=== PATIENT | male | born 1945 | race African-American/Black ===

== ENCOUNTER 2023-06-01 23:30 | Emergency (ER) | payer MEDICARE ==
[~2023-06-01] VITALS: Ht 165.1 cm; Wt 70.0 kg
[~2023-06-01 23:30] MED LIST: CARB-104 PO; DIVA-73 PO; FINA1TAB18 PO; LEVE1000 MT; TAMS-11 PO
[2023-06-01 23:38] VITALS: O2SAT 98
[2023-06-01] MEDS ORDERED: LEVETIRACETAM 500MG PREMIX 100 ML IV ONE (23:45)
[2023-06-02 00:53] LABS: BASOPHILS % 0.6 % (0.0-2.0); EOSINOPHILS % 0.9 % (0.0-5.0); HEMATOCRIT. 40.9 % (42.0-52.0); HEMOGLOBIN. 13.6 g/dL (14.0-18.0); LYMPHOCYTES % 38.9 % (20.0-50.0); MEAN CORPUSCULAR HEMOGLOBIN 28.9 pg (28.0-32.0); MEAN CORPUSCULAR HGB CONC 33.2 g/dL (31.0-37.0); MEAN CORPUSCULAR VOLUME 87.2 fL (80.0-94.0); MEAN PLATELET VOLUME 8.4 fl (7.4-10.4); MONOCYTES % 8.7 % (2.0-8.0); NEUTROPHILS % 50.9 % (40.0-76.0); PLATELET 134 x1000/uL (130-400); RED BLOOD CELL COUNT 4.69 mill/uL (4.7-6.1); RED CELL DISTRIBUTION WIDTH 13.4 % (11.6-14.6); WHITE BLOOD COUNT 3.6 x1000/uL (4.5-11.0)
[2023-06-02 01:05] LABS: ALANINE AMINOTRANSFERASE 10 IU/L (10-49); ALBUMIN 4.4 g/dL (3.2-4.8); ASPARTATE AMINOTRANSFERASE 36 IU/L (<34); BILIRUBIN TOTAL 0.4 mg/dL (0.1-1.0); CALCIUM 8.5 mg/dL (8.7-10.4); CARBON DIOXIDE 27 mEq/L (21-32); CHLORIDE 96 mEq/L (98-107); CREATININE 0.8 mg/dL (0.6-1.3); GLUCOSE 108 mg/dL (70-105); POTASSIUM 5.2 mEq/L (3.5-5.1); SODIUM 131 mEq/L (136-145); UREA NITROGEN BLOOD 15 mg/dL (9-23); VALPROIC ACID 57.3 ug/mL (50-100)
[2023-06-02 01:09] LABS: ETHANOL BLOOD < 10 mg/dL (<10)
[2023-06-02] MEDS ORDERED: ONDANSETRON HCL 4MG/2ML INJ IV ONE (02:45)
[2023-06-02 04:00] VITALS: BP 145/93; PULSE 91; RESP 19
== END 2023-06-02 05:00 | disposition home or self-care (01) ==
LOC: ER 23:30
DX: R56.9 Unspecified convulsions (principal); Z79.899 Other long term (current) drug therapy
CPT/HCPCS: 36415; 99284; 80053; 80320; 82962; 80165; 85025; 96365; 96375; J1953; J2405; G0480

== ENCOUNTER 2024-01-04 14:21 | Emergency (ER) | payer MEDICARE, OTHER ==
[~2024-01-04] VITALS: Ht 172.7 cm; Wt 73.0 kg
[~2024-01-04 14:21] MED LIST changes: -FINA1TAB18 PO; +FINA5TAB11 PO; +MELO-104 PO
[2024-01-04 14:25] VITALS: TEMP 98.8; O2SAT 97
[2024-01-04 14:42] LABS: BASOPHILS % 0.7 % (0.0-2.0); EOSINOPHILS % 3.1 % (0.0-5.0); HEMATOCRIT. 37.3 % (42.0-52.0); HEMOGLOBIN. 12.2 g/dL (14.0-18.0); LYMPHOCYTES % 45.3 % (20.0-50.0); MEAN CORPUSCULAR HEMOGLOBIN 29.7 pg (28.0-32.0); MEAN CORPUSCULAR HGB CONC 32.8 g/dL (31.0-37.0); MEAN CORPUSCULAR VOLUME 90.8 fL (80.0-94.0); MEAN PLATELET VOLUME 7.1 fl (7.4-10.4); MONOCYTES % 6.4 % (2.0-8.0); NEUTROPHILS % 44.5 % (40.0-76.0); PLATELET 87 x1000/uL (130-400); WHITE BLOOD COUNT 3.1 x1000/uL (4.5-11.0)
[2024-01-04] MEDS: LEVETIRACETAM 500MG PREMIX 100 ML IV ONE (14:52)
[2024-01-04 14:53] LABS: CHLORIDE 103 mEq/L (98-107); POTASSIUM 3.8 mEq/L (3.5-5.1); SODIUM 140 mEq/L (136-145)
[2024-01-04 14:54] LABS: CALCIUM 8.7 mg/dL (8.7-10.4); CARBON DIOXIDE 32 mEq/L (21-32)
[2024-01-04 14:59] LABS: CREATININE 0.8 mg/dL (0.6-1.3); GLUCOSE 133 mg/dL (70-105); UREA NITROGEN BLOOD 13 mg/dL (9-23)
[2024-01-04] MEDS ORDERED: KEPP500 MT (15:29)
[2024-01-04] MEDS ORDERED: LEVE1000 MT (15:30)
[2024-01-04 17:00] VITALS: BP 188/83; PULSE 79; RESP 16
== END 2024-01-04 17:45 | disposition home or self-care (01) ==
LOC: ER 14:21
DX: G40.909 Epilepsy, unspecified, not intractable, without status epilepticus (principal); R07.9 Chest pain, unspecified
CPT/HCPCS: 99284; 96365; 80048; 85025; 36415; 93005; J1953

== ENCOUNTER 2024-10-02 23:36 | Emergency (ER) | payer MEDICARE, OTHER ==
[~2024-10-02] VITALS: Ht 172.7 cm; Wt 68.0 kg
[~2024-10-02 23:36] MED LIST changes: -CARB-104 PO; +KEPP500 MT; -TAMS-11 PO; +TAMS-54 PO; +[UNRECOGNIZED DRUG - CODE] PO
[2024-10-02 23:43] VITALS: O2SAT 100
[2024-10-03] MEDS: LEVETIRACETAM 1000MG PREMIX 100 ML IV ONE (00:51)
[2024-10-03 01:08] LABS: CHLORIDE 103 mEq/L (98-107); POTASSIUM 4.8 mEq/L (3.5-5.1); SODIUM 138 mEq/L (136-145)
[2024-10-03 01:09] LABS: CARBON DIOXIDE 29 mEq/L (21-32)
[2024-10-03 01:10] LABS: CALCIUM 9.1 mg/dL (8.7-10.4); HEMOGLOBIN. 12.2 g/dL (14.0-18.0); MEAN CORPUSCULAR HEMOGLOBIN 30.1 pg (28.0-32.0); MEAN CORPUSCULAR HGB CONC 32.9 g/dL (31.0-37.0); MEAN CORPUSCULAR VOLUME 91.3 fL (80.0-94.0); MEAN PLATELET VOLUME 7.9 fl (7.4-10.4); PLATELET 78 x1000/uL (130-400); RED BLOOD CELL COUNT 4.05 mill/uL (4.7-6.1); RED CELL DISTRIBUTION WIDTH 13.1 % (11.6-14.6); WHITE BLOOD COUNT 5.1 x1000/uL (4.5-11.0)
[2024-10-03 01:14] LABS: CREATININE 0.8 mg/dL (0.6-1.3); GLUCOSE 118 mg/dL (70-105); UREA NITROGEN BLOOD 17 mg/dL (9-23)
[2024-10-03 01:24] LABS: DIFFERENTIAL COMMENT 1
[2024-10-03 02:03] LABS: PLATELET ESTIMATE SLIGHTLY DECREASED
[2024-10-03 06:56] VITALS: BP 180/74; PULSE 61; RESP 13; TEMP 36.8; O2SAT 100
== END 2024-10-03 07:15 | disposition home or self-care (01) ==
LOC: ER 23:48
DX: R56.9 Unspecified convulsions (principal); F03.90 Unspecified dementia, unspecified severity, without behavioral disturbance, psychotic disturbance, mood disturbance, and anxiety; Z79.899 Other long term (current) drug therapy
CPT/HCPCS: 99284; 36415; 96365; 80048; 85025; J1953; 96372

== ENCOUNTER 2024-11-23 17:36 | Inpatient (IN) | payer MEDICARE, OTHER ==
[~2024-11-23] VITALS: Ht 172.7 cm; Wt 64.4 kg
[2024-11-23] MEDS: ACETAMINOPHEN 325MG TABLET PO ONE (18:00)
[2024-11-23 21:06] LABS: BASOPHILS % 0.2 % (0.0-2.0); EOSINOPHILS % 0.1 % (0.0-5.0); HEMATOCRIT. 37.3 % (42.0-52.0); HEMOGLOBIN. 12.5 g/dL (14.0-18.0); LYMPHOCYTES % 9.4 % (20.0-50.0); MEAN CORPUSCULAR HEMOGLOBIN 29.8 pg (28.0-32.0); MEAN CORPUSCULAR HGB CONC 33.4 g/dL (31.0-37.0); MEAN PLATELET VOLUME 7.6 fl (7.4-10.4); MONOCYTES % 8.5 % (2.0-8.0); NEUTROPHILS % 81.8 % (40.0-76.0); PLATELET 84 x1000/uL (130-400); RED BLOOD CELL COUNT 4.19 mill/uL (4.7-6.1); WHITE BLOOD COUNT 3.7 x1000/uL (4.5-11.0)
[2024-11-23] MEDS: HYDRALAZINE 20MG/ML VIAL IV ONE (21:08)
[2024-11-23] MEDS: MORPHINE SULFATE 2 MG/ML INJ (NOT FOR IM USE) IV SCH (21:09)
[2024-11-23 21:13] LABS: CHLORIDE 97 mEq/L (98-107); POTASSIUM 4.8 mEq/L (3.5-5.1); SODIUM 134 mEq/L (136-145)
[2024-11-23 21:14] LABS: CARBON DIOXIDE 30 mEq/L (21-32)
[2024-11-23] MEDS ORDERED: LEVETIRACETAM 1,000MG in NACL 100ML PREMIX IV SCH (21:15)
[2024-11-23] MEDS: LORAZEPAM 2MG/ML UD SYRINGE ONE (21:17)
[2024-11-23] MEDS: LORAZEPAM 2MG/ML INJ IV ONE (21:17)
[2024-11-23 21:19] LABS: CREATININE 0.9 mg/dL (0.6-1.3); GLUCOSE 129 mg/dL (70-105); UREA NITROGEN BLOOD 14 mg/dL (9-23)
[2024-11-23 21:20] LABS: TROPONIN I HIGH SENSITIVITY 38 ng/L (3.0-53)
[2024-11-23 21:22] LABS: D-DIMER 14.84 mg/L FEU (<0.50); PROTHROMBIN TIME 11.2 sec (9.6-11.0)
[2024-11-23] MEDS: LEVETIRACETAM 1000MG PREMIX 100 ML IV NR (21:25)
[2024-11-23] MEDS: SODIUM CHLORIDE 0.9% 1,000 ML IV ONE (21:38)
[2024-11-23] MEDS: MORPHINE SULFATE 2 MG/ML INJ (NOT FOR IM USE) IV ONE (21:39)
[2024-11-23] MEDS: ACETAMINOPHEN 325MG TABLET PO SCH (22:45)
[2024-11-24] VITALS (21 sets, daily range): BP systolic 117–180; BP diastolic 53–117; PULSE 63–105; RESP 11–19; TEMP 36.78072–37.7; O2SAT 97–100
[2024-11-24] MEDS ORDERED: IPRATROPIUM/ALBUTEROL 0.5-3(2.5)MG/3ML NEB HHN PRN (00:15)
[2024-11-24] MEDS ORDERED: ACETAMINOPHEN 325MG TABLET PO PRN (00:15)
[2024-11-24] MEDS ORDERED: ONDANSETRON HCL 4MG/2ML INJ IV PRN (00:15)
[2024-11-24] MEDS ORDERED: LEVETIRACETAM 500MG PREMIX 100ML IV NR (00:30)
[2024-11-24] MEDS ORDERED: LEVETIRACETAM 500MG in NACL 100ML PREMIX IV ONE (00:30)
[2024-11-24] MEDS ORDERED: LORAZEPAM 2MG/ML UD SYRINGE IV PRN ×2 (00:30→04:45)
[2024-11-24] MEDS ORDERED: IPRATROPIUM/ALBUTEROL 0.5-3(2.5)MG/3ML NEB HHN NR (00:30)
[2024-11-24] MEDS ORDERED: DEXTROSE 50% WATER 50ML SYRINGE IV PRN (01:00)
[2024-11-24] MEDS: VALPROATE SODIUM 1,000 MG in SODIUM CHLORIDE 0.9% 100 ML IV NR (01:13)
[2024-11-24] MEDS: LEVETIRACETAM 1000MG PREMIX 100 ML IV NR (01:20)
[2024-11-24] MEDS: SODIUM CHLORIDE 0.9% 1,000 ML IV SCH (02:00)
[2024-11-24 03:03] LABS: CHLORIDE 101 mEq/L (98-107); POTASSIUM 4.8 mEq/L (3.5-5.1); SODIUM 134 mEq/L (136-145)
[2024-11-24 03:04] LABS: CARBON DIOXIDE 30 mEq/L (21-32)
[2024-11-24 03:05] LABS: CALCIUM 8.7 mg/dL (8.7-10.4)
[2024-11-24 03:09] LABS: CREATININE 0.9 mg/dL (0.6-1.3); GLUCOSE 145 mg/dL (70-105)
[2024-11-24 03:10] LABS: UREA NITROGEN BLOOD 13 mg/dL (9-23)
[2024-11-24 03:11] LABS: CREATINE KINASE 188 IU/L (46-171)
[2024-11-24 03:14] LABS: PHOSPHORUS 3.5 mg/dL (2.5-4.9)
[2024-11-24 03:21] LABS: HEMATOCRIT 35.4 % (42.0-52.0); HEMOGLOBIN 11.8 g/dL (14.0-18.0); MEAN CORPUSCULAR HEMOGLOBIN 29.9 pg (28.0-32.0); MEAN CORPUSCULAR HGB CONC 33.4 g/dL (31.0-37.0); MEAN CORPUSCULAR VOLUME 89.5 fL (80.0-94.0); PLATELET 77 x1000/uL (130-400); RED BLOOD CELL COUNT 3.96 mill/uL (4.7-6.1); RED CELL DISTRIBUTION WIDTH 13.9 % (11.6-14.6); WHITE BLOOD COUNT 3.7 x1000/uL (4.5-11.0)
[2024-11-24] MEDS: HYDRALAZINE 20MG/ML VIAL IV PRN (05:10)
[2024-11-24 07:16] LABS: CLARITY URINE CLEAR (CLEAR); COLOR URINE YELLOW (YELLOW); GLUCOSE URINE NEGATIVE (NEGATIVE); KETONES URINE NEGATIVE (NEGATIVE); LEUKOCYTE ESTERASE URINE NEGATIVE (NEGATIVE); NITRITE URINE NEGATIVE (NEGATIVE); OCCULT BLOOD URINE NEGATIVE (NEGATIVE); PH URINE 7.5 (4.5-8.0); PROTEIN URINE NEGATIVE (NEGATIVE); SPECIFIC GRAVITY URINE 1.013 (1.005-1.030)
[2024-11-24 07:18] LABS: CREATINE KINASE MB FRACTION 3.4 ng/mL (0.5-3.6)
[2024-11-24] MEDS: BLOOD SUGAR DIAGNOSTIC STRIP TEST SCH (07:30)
[2024-11-24 07:32] LABS: *AMPHETAMINES SCREEN URINE NEGATIVE (NEGATIVE); *BENZODIAZEPINES SCREEN URINE NEGATIVE (NEGATIVE)
[2024-11-24 07:33] LABS: *BARBITURATES SCREEN URINE NEGATIVE (NEGATIVE); *COCAINE SCREEN URINE NEGATIVE (NEGATIVE); CANNABINOID URINE SCREEN NEGATIVE (NEGATIVE); ECSTASY MDMA SCREEN URINE NEGATIVE (NEGATIVE); METHADONE URINE SCREEN NEGATIVE (NEGATIVE); OPIATES URINE SCREEN PRESUMPTIVE POSITIVE (NEGATIVE); PHENCYCLIDINE URINE SCREEN NEGATIVE (NEGATIVE)
[2024-11-24] MEDS: IPRATROPIUM/ALBUTEROL 0.5-3(2.5)MG/3ML NEB HHN SCH (08:23)
[2024-11-24 08:27] LABS: BG BASE EXCESS -1.6 mmol/L (-2.0-3.0); BG CARBOXYHEMOGLOBIN 0.3 % (0.5-1.5); BG DEOXYHEMOGLOBIN 0.6 % (0.0-5.0); BG FRACTION INSPIRED OXYGEN 40; BG HCO3 ACT 21.8 mmol/L (21.0-28.0); BG METHEMOGLOBIN 0.4 % (0.5-1.5); BG OXYGEN SATURATION 99.4 % (94.0-98.0); BG OXYHEMOGLOBIN 98.7 % (94.0-98.0); BG PCO2 32.8 mmHg (35.0-48.0); BG PH 7.441 (7.350-7.450); BG PO2 183.5 mmHg (83.0-108.0); BG SAMPLE SITE RIGHT RADIAL; BG TOTAL HEMOGLOBIN 11.9 g/dL (13.5-17.5); BG VENT MODE NASAL CANNULA
[2024-11-24] MEDS: PANTOPRAZOLE SODIUM 40 MG/VIAL IV SCH (08:47)
[2024-11-24] MEDS: LEVETIRACETAM 1000MG PREMIX 100 ML IV SCH (08:47)
[2024-11-24] MEDS ORDERED: LEVETIRACETAM 1,000MG in NACL 100ML PREMIX IV SCH (09:00)
[2024-11-24] MEDS: VALPROIC ACID 250MG CAPSULE PO SCH (15:14)
[2024-11-24] MEDS ORDERED: IOHEXOL-350 100 ML BOTTLE ONE (15:30)
[2024-11-24] MEDS: CARBAMAZEPINE 200MG TABLET PO SCH (18:00)
[2024-11-24 18:07] LABS: HEMATOCRIT 32.1 % (42.0-52.0); MEAN CORPUSCULAR HEMOGLOBIN 30.8 pg (28.0-32.0); MEAN CORPUSCULAR HGB CONC 34.4 g/dL (31.0-37.0); MEAN CORPUSCULAR VOLUME 89.4 fL (80.0-94.0); PLATELET 93 x1000/uL (130-400); RED BLOOD CELL COUNT 3.59 mill/uL (4.7-6.1); RED CELL DISTRIBUTION WIDTH 14.1 % (11.6-14.6); WHITE BLOOD COUNT 4.2 x1000/uL (4.5-11.0)
[2024-11-24 18:19] LABS: CARBON DIOXIDE 28 mEq/L (21-32); CHLORIDE 101 mEq/L (98-107); POTASSIUM 3.9 mEq/L (3.5-5.1); SODIUM 136 mEq/L (136-145)
[2024-11-24 18:20] LABS: CALCIUM 8.6 mg/dL (8.7-10.4)
[2024-11-24 18:24] LABS: PROTHROMBIN TIME 10.9 sec (9.6-11.0)
[2024-11-24 18:25] LABS: CREATINE KINASE MB FRACTION 2.3 ng/mL (0.5-3.6); CREATININE 0.7 mg/dL (0.6-1.3); GLUCOSE 110 mg/dL (70-105); TROPONIN I HIGH SENSITIVITY 45 ng/L (3.0-53); UREA NITROGEN BLOOD 8 mg/dL (9-23)
[2024-11-24 18:26] LABS: ALANINE AMINOTRANSFERASE 12 IU/L (10-49); ALBUMIN 3.9 g/dL (3.2-4.8); ASPARTATE AMINOTRANSFERASE 21 IU/L (<34)
[2024-11-24 18:27] LABS: BILIRUBIN TOTAL 0.7 mg/dL (0.1-1.0); CREATINE KINASE 283 IU/L (46-171); PROTEIN TOTAL 6.4 g/dL (6.0-8.3)
[2024-11-24] MEDS: IPRATROPIUM/ALBUTEROL 0.5-3(2.5)MG/3ML NEB HHN ONE (21:18)
[2024-11-25] VITALS (18 sets, daily range): BP systolic 129–175; BP diastolic 55–92; PULSE 82–99; RESP 9–21; TEMP 36.3–37.2; O2SAT 97–100
[2024-11-25 06:31] LABS: BASOPHILS % 0.1 % (0.0-2.0); EOSINOPHILS % 0.5 % (0.0-5.0); HEMOGLOBIN. 11.6 g/dL (14.0-18.0); LYMPHOCYTES % 13.8 % (20.0-50.0); MEAN CORPUSCULAR HEMOGLOBIN 30.3 pg (28.0-32.0); MEAN CORPUSCULAR HGB CONC 33.3 g/dL (31.0-37.0); MEAN PLATELET VOLUME 7.7 fl (7.4-10.4); MONOCYTES % 12.5 % (2.0-8.0); NEUTROPHILS % 73.1 % (40.0-76.0); PLATELET 92 x1000/uL (130-400); RED BLOOD CELL COUNT 3.84 mill/uL (4.7-6.1); RED CELL DISTRIBUTION WIDTH 14.2 % (11.6-14.6); WHITE BLOOD COUNT 4.5 x1000/uL (4.5-11.0)
[2024-11-25 06:35] LABS: CARBON DIOXIDE 26 mEq/L (21-32); CHLORIDE 100 mEq/L (98-107); POTASSIUM 3.8 mEq/L (3.5-5.1); SODIUM 137 mEq/L (136-145)
[2024-11-25 06:36] LABS: CALCIUM 8.8 mg/dL (8.7-10.4)
[2024-11-25 06:38] LABS: T4 FREE 1.02 ng/dL (0.89-1.76); THYROID STIMULATING HORMONE 2.14 uIU/mL (0.55-4.78)
[2024-11-25 06:40] LABS: CARBAMAZEPINE 5.1 ug/mL (4-12)
[2024-11-25 06:41] LABS: CREATININE 0.7 mg/dL (0.6-1.3); GLUCOSE 106 mg/dL (70-105); TRIGLYCERIDE 72 mg/dL (0-150); UREA NITROGEN BLOOD 10 mg/dL (9-23)
[2024-11-25 06:42] LABS: LDL CHOLESTEROL 69 mg/dL (5-100)
[2024-11-25 06:43] LABS: CHOLESTEROL 176 mg/dL (<200); HDL CHOLESTEROL 85 mg/dL (>55)
[2024-11-25] MEDS ORDERED: VANCOMYCIN HCL 1GM VIAL ONE (13:56)
[2024-11-25] MEDS ORDERED: HYDRALAZINE 20MG/ML VIAL IV PRN (14:00)
[2024-11-25] MEDS ORDERED: HYDROMORPHONE HCL/PF 1MG/ML INJ IV PRN ×2 (14:00)
[2024-11-25] MEDS ORDERED: ONDANSETRON HCL 4MG/2ML INJ IV PRN (14:00)
[2024-11-25] MEDS ORDERED: DEXAMETHASONE 4MG/ML 1ML VIAL IV PRN (14:00)
[2024-11-25] MEDS ORDERED: LABETALOL 5MG/ML 4ML INJ IV PRN (14:00)
[2024-11-25] MEDS ORDERED: GLYCOPYRROLATE 0.2 MG/ML 2ML VIAL IV PRN (14:00)
[2024-11-25] MEDS ORDERED: FENTANYL CITRATE/PF 50MCG/ML 5ML VIAL ONE (14:11)
[2024-11-25] MEDS ORDERED: ROCURONIUM BROMIDE 10MG/ML VIAL 5ML IV ONE (14:18)
[2024-11-25] MEDS ORDERED: TRANEXAMIC ACID 1000MG PREMIX 200 ML IV ONE (14:27)
[2024-11-25] MEDS ORDERED: HYDROMORPHONE HCL/PF 1MG/ML INJ ONE (14:56)
[2024-11-25] MEDS ORDERED: SUGAMMADEX SODIUM 200MG/2ML VIAL IV ONE (14:56)
[2024-11-25] MEDS: HYDROMORPHONE HCL/PF 1MG/ML INJ IV PRN (15:53)
[2024-11-25] MEDS: CEFAZOLIN 1000MG PREMIX 50 ML IV SCH (18:07)
[2024-11-25] MEDS ORDERED: ASPIRIN 325MG EC TABLET PO SCH (21:00)
[2024-11-25] MEDS: ASPIRIN 325MG EC TABLET PO SCH (21:31)
[2024-11-25] MEDS: LEVETIRACETAM 500MG TABLET PO SCH (21:31)
[2024-11-25] MEDS: CLONIDINE 0.1MG TABLET PO PRN (21:31)
[2024-11-26] VITALS (16 sets, daily range): BP systolic 98–149; BP diastolic 50–76; PULSE 76–108; RESP 13–20; TEMP 36.3–36.8; O2SAT 96–100
[2024-11-26 06:24] LABS: CHLORIDE 99 mEq/L (98-107); SODIUM 135 mEq/L (136-145)
[2024-11-26 06:25] LABS: CALCIUM 8.8 mg/dL (8.7-10.4); CARBON DIOXIDE 29 mEq/L (21-32)
[2024-11-26 06:30] LABS: CREATININE 0.7 mg/dL (0.6-1.3); GLUCOSE 102 mg/dL (70-105); UREA NITROGEN BLOOD 14 mg/dL (9-23)
[2024-11-26 06:54] LABS: HEMATOCRIT. 30.9 % (42.0-52.0); HEMOGLOBIN. 10.4 g/dL (14.0-18.0); MEAN CORPUSCULAR HEMOGLOBIN 30.4 pg (28.0-32.0); MEAN CORPUSCULAR HGB CONC 33.6 g/dL (31.0-37.0); MEAN CORPUSCULAR VOLUME 90.5 fL (80.0-94.0); MEAN PLATELET VOLUME 7.6 fl (7.4-10.4); PLATELET 105 x1000/uL (130-400); RED BLOOD CELL COUNT 3.42 mill/uL (4.7-6.1); RED CELL DISTRIBUTION WIDTH 14.1 % (11.6-14.6); WHITE BLOOD COUNT 4.1 x1000/uL (4.5-11.0)
[2024-11-26 07:03] LABS: DIFFERENTIAL COMMENT 1
[2024-11-26] MEDS: KETOROLAC 15MG/ML VIAL IV PRN (11:26)
[2024-11-26] MEDS: ACETAMINOPHEN 500MG TABLET PO SCH (12:20)
[2024-11-26] MEDS: ENOXAPARIN 40MG/0.4ML SYR SUBCUT SCH (17:18)
[2024-11-26 18:13] LABS: PLATELET ESTIMATE DECREASED
[2024-11-27] VITALS (15 sets, daily range): BP systolic 101–151; BP diastolic 44–81; PULSE 71–101; RESP 12–20; TEMP 36.4–37.1; O2SAT 99–100
[2024-11-27 06:43] LABS: BASOPHILS % 0.2 % (0.0-2.0); CHLORIDE 100 mEq/L (98-107); EOSINOPHILS % 0.3 % (0.0-5.0); HEMATOCRIT. 27.8 % (42.0-52.0); HEMOGLOBIN. 9.4 g/dL (14.0-18.0); LYMPHOCYTES % 20.9 % (20.0-50.0); MEAN CORPUSCULAR HEMOGLOBIN 30.5 pg (28.0-32.0); MEAN CORPUSCULAR HGB CONC 33.8 g/dL (31.0-37.0); MEAN CORPUSCULAR VOLUME 90.2 fL (80.0-94.0); MEAN PLATELET VOLUME 7.4 fl (7.4-10.4); MONOCYTES % 14.7 % (2.0-8.0); NEUTROPHILS % 63.9 % (40.0-76.0); PLATELET 85 x1000/uL (130-400); POTASSIUM 3.7 mEq/L (3.5-5.1); RED BLOOD CELL COUNT 3.08 mill/uL (4.7-6.1); RED CELL DISTRIBUTION WIDTH 13.7 % (11.6-14.6); SODIUM 135 mEq/L (136-145); WHITE BLOOD COUNT 4.3 x1000/uL (4.5-11.0)
[2024-11-27 06:44] LABS: CARBON DIOXIDE 28 mEq/L (21-32)
[2024-11-27 06:45] LABS: CALCIUM 8.5 mg/dL (8.7-10.4)
[2024-11-27 06:50] LABS: CREATININE 0.7 mg/dL (0.6-1.3); GLUCOSE 80 mg/dL (70-105); UREA NITROGEN BLOOD 10 mg/dL (9-23)
[2024-11-27] MEDS ORDERED: HYDRALAZINE 20MG/ML VIAL IV PRN (08:45)
[2024-11-27] MEDS ORDERED: HYDRALAZINE 10 MG in SODIUM CHLORIDE 0.9% 49.5 ML IV PRN (09:15)
[2024-11-27] MEDS: ACETAMINOPHEN 500MG TABLET PO PRN (13:14)
[2024-11-28] VITALS: BP 109/49; PULSE 82; RESP 14; TEMP 36.6; O2SAT 98
[2024-11-28 02:00] VITALS: BP 119/47; PULSE 88; RESP 15; O2SAT 98
[2024-11-28 04:00] VITALS: BP 134/64; PULSE 79; RESP 11; TEMP 36.9
[2024-11-28 06:00] VITALS: BP 123/61; PULSE 80; RESP 12; O2SAT 100
[2024-11-28 06:24] LABS: BASOPHILS % 0.2 % (0.0-2.0); EOSINOPHILS % 0.5 % (0.0-5.0); HEMATOCRIT. 25.3 % (42.0-52.0); HEMOGLOBIN. 8.6 g/dL (14.0-18.0); LYMPHOCYTES % 12.7 % (20.0-50.0); MEAN CORPUSCULAR HEMOGLOBIN 30.2 pg (28.0-32.0); MEAN CORPUSCULAR VOLUME 88.9 fL (80.0-94.0); MEAN PLATELET VOLUME 7.4 fl (7.4-10.4); MONOCYTES % 10.2 % (2.0-8.0); NEUTROPHILS % 76.4 % (40.0-76.0); PLATELET 98 x1000/uL (130-400); RED BLOOD CELL COUNT 2.84 mill/uL (4.7-6.1); RED CELL DISTRIBUTION WIDTH 13.5 % (11.6-14.6)
[2024-11-28 07:19] LABS: CARBON DIOXIDE 31 mEq/L (21-32); CHLORIDE 99 mEq/L (98-107); POTASSIUM 3.3 mEq/L (3.5-5.1); SODIUM 135 mEq/L (136-145)
[2024-11-28 07:20] LABS: CALCIUM 8.2 mg/dL (8.7-10.4)
[2024-11-28 07:23] LABS: CREATININE 0.7 mg/dL (0.6-1.3)
[2024-11-28 07:25] LABS: GLUCOSE 106 mg/dL (70-105); UREA NITROGEN BLOOD 7 mg/dL (9-23)
[2024-11-28 08:42] VITALS: PULSE 70; RESP 22; O2SAT 100
[2024-11-28 14:19] VITALS: BP 149/70; PULSE 91; TEMP 97.7; O2SAT 99
[2024-11-28] MEDS: ACETAMINOPHEN 325MG TABLET PO PRN (14:27)
== END 2024-11-28 16:21 | disposition short-term general hospital (02) | DRG 521 ==
LOC: ER 17:36 → EDBEDREQ 18:38 → 6WST 21:18 → EDBEDREQ 21:21 → EDBEDREQSVC 21:21 → ENRESERV 22:20 → 5EST 11-24 00:15
PROVIDERS: ADMIT Internal Medicine; ATTEND Internal Medicine
PROC: 30233K1 Transfusion of Nonautologous Frozen Plasma into Peripheral Vein, Percutaneous Approach (ICD-10-PCS; 2024-11-24)
PROC: 30233R1 Transfusion of Nonautologous Platelets into Peripheral Vein, Percutaneous Approach (ICD-10-PCS; 2024-11-24)
PROC: 0SRS0JZ Replacement of Left Hip Joint, Femoral Surface with Synthetic Substitute, Open Approach (ICD-10-PCS; principal; 2024-11-25)
PROC: 4A00X4Z Measurement of Central Nervous Electrical Activity, External Approach (ICD-10-PCS; 2024-11-25)
DX: S72.012A Unspecified intracapsular fracture of left femur, initial encounter for closed fracture (principal); J96.01 Acute respiratory failure with hypoxia; D69.6 Thrombocytopenia, unspecified; R79.89 Other specified abnormal findings of blood chemistry; Z20.822 Contact with and (suspected) exposure to COVID-19; G40.901 Epilepsy, unspecified, not intractable, with status epilepticus; F03.90 Unspecified dementia, unspecified severity, without behavioral disturbance, psychotic disturbance, mood disturbance, and anxiety; N40.0 Benign prostatic hyperplasia without lower urinary tract symptoms; Z79.899 Other long term (current) drug therapy; W18.30XA Fall on same level, unspecified, initial encounter; Y93.01 Activity, walking, marching and hiking; Y92.89 Other specified places as the place of occurrence of the external cause; Y99.8 Other external cause status
CPT/HCPCS: 36415; 36600; 71045; 71275; 72170; 73502; 74176; 80048; 80053; 80061; 80156; 80165; 80305; 81003; 82375; 82550; 82553; 82805; 82962; 83036; 83605; 83735; 83880; 84100; 84145; 84439; 84443; 84484; 85025; 85027; 85049; 85379; 86850; 86900; 86927; 87426; 88311; 93005; 93306; 93880; 93970; 94070; 94640; 94664; 94760; 95816; 97112; 97162; 97166; 97530; 97535; 98960; 99285; A4606; J0360; J0690; J1171; J1650; J1885; J1953; J2060; J2270; J2470; J3010; J3370; J3490; J7030; J7050; J7120; P9017; P9034; Q9967; C1776

== ENCOUNTER 2025-03-16 15:05 | Inpatient (IN) | payer MEDICARE, OTHER ==
[~2025-03-16] VITALS: Ht 165.1 cm; Wt 61.3 kg
[2025-03-16 15:07] VITALS: O2SAT 99
[2025-03-16 15:47] LABS: BASOPHILS % 0.1 % (0.0-2.0); EOSINOPHILS % 0.0 % (0.0-5.0); HEMATOCRIT. 38.0 % (42.0-52.0); HEMOGLOBIN. 12.6 g/dL (14.0-18.0); LYMPHOCYTES % 12.0 % (20.0-50.0); MEAN PLATELET VOLUME 8.0 fl (7.4-10.4); MONOCYTES % 3.9 % (2.0-8.0); NEUTROPHILS % 84.0 % (40.0-76.0); PLATELET 119 x1000/uL (130-400); RED BLOOD CELL COUNT 4.40 mill/uL (4.7-6.1); RED CELL DISTRIBUTION WIDTH 17.0 % (11.6-14.6)
[2025-03-16 15:50] LABS: CLARITY URINE CLEAR (CLEAR); COLOR URINE YELLOW (YELLOW); GLUCOSE URINE NEGATIVE (NEGATIVE); KETONES URINE TRACE (NEGATIVE); LEUKOCYTE ESTERASE URINE NEGATIVE (NEGATIVE); NITRITE URINE NEGATIVE (NEGATIVE); OCCULT BLOOD URINE 2+ (NEGATIVE); PH URINE 5.5 (4.5-8.0); PROTEIN URINE NEGATIVE (NEGATIVE); SPECIFIC GRAVITY URINE 1.019 (1.005-1.030); UROBILINOGEN URINE 1.0 E.U./dL (0.2-1.0)
[2025-03-16] MEDS: SODIUM CHLORIDE 0.9% (SEPSIS BOLUS) IV ONE (15:52)
[2025-03-16] MEDS: PIPERACILLIN/TAZO 3.375G/50ML 50 ML IV ONE (15:52)
[2025-03-16] MEDS: VANCOMYCIN 1G PREMIX 200 ML IV ONE (15:54)
[2025-03-16 16:00] LABS: CREATININE 0.7 mg/dL (0.6-1.3); UREA NITROGEN BLOOD 10 mg/dL (9-23)
[2025-03-16 16:01] LABS: *AMPHETAMINES SCREEN URINE NEGATIVE (NEGATIVE); *BARBITURATES SCREEN URINE NEGATIVE (NEGATIVE); *BENZODIAZEPINES SCREEN URINE NEGATIVE (NEGATIVE); *COCAINE SCREEN URINE NEGATIVE (NEGATIVE); CANNABINOID URINE SCREEN NEGATIVE (NEGATIVE); ECSTASY MDMA SCREEN URINE NEGATIVE (NEGATIVE); METHADONE URINE SCREEN NEGATIVE (NEGATIVE); OPIATES URINE SCREEN NEGATIVE (NEGATIVE); PHENCYCLIDINE URINE SCREEN NEGATIVE (NEGATIVE); TROPONIN I HIGH SENSITIVITY 7 ng/L (3.0-53)
[2025-03-16 16:02] LABS: ASPARTATE AMINOTRANSFERASE 23 IU/L (<34); BILIRUBIN DIRECT 0.2 mg/dL (<=3.0); BILIRUBIN TOTAL 0.5 mg/dL (0.1-1.0); PROTEIN TOTAL 7.3 g/dL (6.0-8.3)
[2025-03-16 16:05] LABS: BACTERIA URINE 1+; RBC URINE 15-25 /hpf (0-2); SQUAMOUS EPITHELIAL CELL URINE FEW /lpf (RARE/1+); WBC URINE 0-2 /hpf (0-2)
[2025-03-16] MEDS: ACETAMINOPHEN 1000MG/100ML 100 ML IV ONE (16:07)
[2025-03-16] MEDS: HYDRALAZINE 20MG/ML VIAL IV ONE (17:45)
[2025-03-16 17:59] LABS: TROPONIN I HIGH SENSITIVITY 317 ng/L (3.0-53)
[2025-03-16] MEDS: ASPIRIN 325MG TABLET PO ONE (19:00)
[2025-03-16 19:24] LABS: INR 1.0
[2025-03-16 19:37] VITALS: BP 167/67; PULSE 100; RESP 20; TEMP 36.3; O2SAT 95
[2025-03-16] MEDS ORDERED: LEVETIRACETAM 1,000MG in NACL 100ML PREMIX IV SCH (21:00)
[2025-03-16] MEDS: LEVETIRACETAM 1000MG PREMIX 100 ML IV SCH (21:37)
[2025-03-17] VITALS (7 sets, daily range): BP systolic 114–169; BP diastolic 54–67; PULSE 78–102; RESP 18–20; TEMP 36.2–37.1408; O2SAT 96–99
[2025-03-17] MEDS ORDERED: LORAZEPAM 2MG/ML UD SYRINGE IV PRN (00:15)
[2025-03-17] MEDS ORDERED: ONDANSETRON HCL 4MG/2ML INJ IV PRN (00:15)
[2025-03-17] MEDS: DEXT 5%/0.45% NACL 1000ML 1,000 ML IV SCH (00:42)
[2025-03-17] MEDS: VALPROATE SODIUM 250MG/5ML UDC PO SCH (05:31)
[2025-03-17] MEDS: LEVETIRACETAM 1000MG PREMIX 100 ML IV SCH (08:11)
[2025-03-17] MEDS: CARBAMAZEPINE 200MG TABLET PO SCH (08:12)
[2025-03-17] MEDS: ENOXAPARIN 40MG/0.4ML SYR SUBCUT SCH (08:12)
[2025-03-18] VITALS (11 sets, daily range): BP systolic 107–192; BP diastolic 42–83; PULSE 72–112; RESP 13–19; TEMP 35.6–36.7; O2SAT 94–100
[2025-03-18 07:54] LABS: BASOPHILS % 0.2 % (0.0-2.0); EOSINOPHILS % 0.2 % (0.0-5.0); HEMATOCRIT. 33.6 % (42.0-52.0); HEMOGLOBIN. 11.1 g/dL (14.0-18.0); LYMPHOCYTES % 12.6 % (20.0-50.0); MEAN PLATELET VOLUME 7.2 fl (7.4-10.4); MONOCYTES % 5.0 % (2.0-8.0); NEUTROPHILS % 82.0 % (40.0-76.0); PLATELET 64 x1000/uL (130-400); RED BLOOD CELL COUNT 3.88 mill/uL (4.7-6.1); RED CELL DISTRIBUTION WIDTH 16.2 % (11.6-14.6)
[2025-03-18 08:11] LABS: CREATININE 0.6 mg/dL (0.6-1.3); UREA NITROGEN BLOOD 8 mg/dL (9-23)
[2025-03-18 08:13] LABS: PHOSPHORUS 2.7 mg/dL (2.5-4.9)
[2025-03-18 08:39] LABS: TROPONIN I HIGH SENSITIVITY 166 ng/L (3.0-53)
[2025-03-18] MEDS: HYDRALAZINE 20MG/ML VIAL IV PRN (08:59)
[2025-03-18] MEDS: AMLODIPINE 5MG TABLET PO SCH (10:30)
[2025-03-19] MEDS ORDERED: ASPIRIN 81MG TABLET PO SCH (09:00)
== END 2025-03-18 22:50 | disposition short-term general hospital (02) | DRG 100 ==
LOC: ER 15:17 → EDBEDREQTM 17:44 → EDBEDREQ 17:44 → ENRESERV 19:10 → 6WST 19:32 → UNDOADMIN 19:32
PROVIDERS: ADMIT Internal Medicine; ATTEND Internal Medicine
DX: G40.409 Other generalized epilepsy and epileptic syndromes, not intractable, without status epilepticus (principal); I21.4 Non-ST elevation (NSTEMI) myocardial infarction; J18.9 Pneumonia, unspecified organism; G93.40 Encephalopathy, unspecified; F03.90 Unspecified dementia, unspecified severity, without behavioral disturbance, psychotic disturbance, mood disturbance, and anxiety; Z20.822 Contact with and (suspected) exposure to COVID-19; D64.9 Anemia, unspecified; Z96.642 Presence of left artificial hip joint; R41.89 Other symptoms and signs involving cognitive functions and awareness; Z79.899 Other long term (current) drug therapy
CPT/HCPCS: 36415; 71045; 80048; 80076; 80305; 80320; 81003; 83605; 83735; 84100; 84145; 84484; 85025; 87426; 93005; 96365; 96367; 96368; 99291; A4606; G0378; J0360; J1650; J1953; J2543; J3373; J7030; G0480; J0131